=== PATIENT | female | born 1975 | race Caucasian/White ===

== ENCOUNTER → 2020-04-19 08:09 | Outpatient (CLI) | payer OTHER, SELFPAY ==
--- NOTE | ~2020-04-19 | MMUS_ITS ---
EXAMINATION: MM diagnostic june BI w melissa, US breast RT limited HISTORY: Right nipple discharge TECHNIQUE: Craniocaudal, mediolateral, and mediolateral oblique 3-D tomosynthesis images of the delfin ts were performed and synthetic 2-D images were generated. CAD analysis was submitted and interpreted . High resolution right breast ultrasound was performed. COMPARISON: 04/07/2019, 12/27/2016, 12/15/2016, 04/13/2015, 07/28/2014 BREAST PARENCHYMAL COMPOSITION: The breasts are heterogeneously dense, which may obscure small masses . FINDINGS: MAMMOGRAPHIC FINDINGS: Right breast: There is a 1.9 cm equal density mass in the subareolar aspect of the right breast which has a stable appearance when compared to prior mammograms. No suspicious mass, calcification, or arc hitectural distortion are identified. There has been no suspicious interval change. Left breast: There is no evidence of suspicious mass, calcification, or architectural distortion to suggest malignancy. There has been no suspicious interval change. ULTRASOUND: There is a stable 1.9 x 0.6 cm oval, circumscribed, parallel, hypoechoic mass with no posterior featu res or internal vascularity at the 12:00 location near the nipple. A 6 mm cyst is seen at the 12:00 l ocation 2 cm from the nipple. No suspicious cystic or solid mass is identified. IMPRESSION: 1. No specific mammographic or sonographic correlate is identified for the patient's reported right n ipple discharge. A subareolar right breast mass is stable since 2013 and considered benign given the lack of interval change. Further evaluation at this time should be based on clinical assessment. Cont inued follow-up physical examination is recommended. 2. Recommend routine screening mammography in one year. BI-RADS Category 2: Benign finding(s). Reviewed, dictated and finalized at location A. IMPRESSION: 1. No specific mammographic or sonographic correlate is identified for the steve ent's reported right nipple discharge. A subareolar right breast mass is stable since 2013 and considered benign given the lack of interval change. Further ev aluation at this time should be based on clinical assessment. Continued follow- up physical examination is recommended. 2. Recommend routine screening mammography in one year. BI-RADS Category 2: Benign finding(s).
== END ==
PROVIDERS: Visit Provider Family Medicine
DX: N64.52 Nipple discharge (principal)
CPT/HCPCS: 76642; 77062; 77066; G0279

== ENCOUNTER → 2021-03-05 07:18 | Outpatient (CLI) | payer OTHER, SELFPAY ==
--- NOTE | ~2021-03-05 | US_ITS ---
EXAMINATION: US transvaginal DATE: 03/05/2021 07:57 INDICATION: Abnormal uterine bleeding TECHNIQUE: Multiple endovaginal sonographic images of the pelvis were obtained. COMPARISON: 03/20/2019 FINDINGS: The uterus measures 10.5 x 4.6 x 6.6 cm. A 2.3 x 1.4 x 2.1 cm isoechoic area of the anterio r uterine body has the appearance of an intramural fibroid. The endometrial complex measures 7 mm. Th e right ovary measures 2.4 x 1.8 x 2.0 cm. The left ovary measures 1.6 x 1.0 x 1.3 cm. There is aydin l vascular flow in the ovaries. There is no free fluid in the pelvis. IMPRESSION: 1. No sonographic correlate for the patient's symptoms. Reviewed, dictated and finalized at location A.
== END ==
PROVIDERS: Visit Provider Family Medicine
DX: N93.9 Abnormal uterine and vaginal bleeding, unspecified (principal)
CPT/HCPCS: 76830

== ENCOUNTER → 2021-05-27 12:23 | Outpatient (CLI) | payer OTHER, SELFPAY ==
--- NOTE | ~2021-05-27 | MM_ITS ---
EXAMINATION: MM screening june BI w melissa HISTORY: Screening TECHNIQUE: Craniocaudal and mediolateral oblique 3-D tomosynthesis images were obtained and synthetic 2-D images were generated. CAD analysis was submitted and interpreted. COMPARISON: Comparison to multiple prior studies sequentially, with oldest reviewed study dated 07/15. BREAST PARENCHYMAL COMPOSITION: The breasts are heterogeneously dense, which may obscure small masses . FINDINGS: There is developing asymmetries in the upper inner quadrant of the right breast posteriorly . The left breast is stable without evidence for malignancy. IMPRESSION: 1. Developing right breast asymmetries 2. Additional mammographic views and possible breast ultrasound are recommended. BI-RADS Category 0: Incomplete: Needs additional imaging evaluation. Reviewed, dictated and finalized at location A. IMPRESSION: 1. Developing right breast asymmetries 2. Additional mammographic views and possible breast ultrasound are recommended . BI-RADS Category 0: Incomplete: Needs additional imaging evaluation.
== END ==
PROVIDERS: PCP Family Medicine; Visit Provider Family Medicine
DX: Z12.31 Encounter for screening mammogram for malignant neoplasm of breast (principal); R92.8 Other abnormal and inconclusive findings on diagnostic imaging of breast
CPT/HCPCS: 77063; 77067

== ENCOUNTER → 2021-06-29 09:21 | Outpatient (CLI) | payer OTHER, SELFPAY ==
--- NOTE | ~2021-06-29 | MMUS_ITS ---
EXAMINATION: MM diagnostic june RT w melissa, US breast RT complete HISTORY: Follow-up right breast masses TECHNIQUE: Additional 3-D tomosynthesis images of the right breast were performed and synthetic 2-D i mages were generated. CAD analysis was submitted and interpreted. High resolution complete right kalyan st ultrasound was performed. COMPARISON: Comparison to multiple prior studies sequentially, with oldest reviewed study dated 04/13. BREAST PARENCHYMAL COMPOSITION: The breasts are heterogenously dense, which may obscure small masses. FINDINGS: MAMMOGRAPHIC FINDINGS: There are multiple small masses scattered throughout the right breast which are partially obscured by fibroglandular tissue. The largest is in the subareolar location of the right breast. ULTRASOUND: Complete right breast ultrasound: There are multiple simple cysts of the right breast corresponding t o the masses seen on mammography. No suspicious solid masses are identified to suggest malignancy. IMPRESSION: 1. No evidence for malignancy in the right breast. Benign cysts. 2. Routine yearly screening mammogram and regular clinical breast examination are recommended. BI-RADS Category 2: Benign finding(s). Reviewed, dictated and finalized at location A. IMPRESSION: 1. No evidence for malignancy in the right breast. Benign cysts. 2. Routine yearly screening mammogram and regular clinical breast examination a re recommended. BI-RADS Category 2: Benign finding(s).
== END ==
PROVIDERS: PCP Family Medicine; Visit Provider Family Medicine
DX: R92.8 Other abnormal and inconclusive findings on diagnostic imaging of breast (principal)
CPT/HCPCS: 76641; 77061; 77065; G0279

== ENCOUNTER → 2022-10-25 10:24 | Outpatient (CLI) | payer OTHER, SELFPAY ==
--- NOTE | ~2022-10-25 | MM_ITS ---
EXAMINATION: MM screening june BI w melissa HISTORY: Screening mammogram TECHNIQUE: Craniocaudal and mediolateral oblique 3-D tomosynthesis images were obtained and synthetic 2-D images were generated. Bilateral rotated lateral CC views. CAD analysis was submitted and interp reted. COMPARISON: 06/29/2021 diagnostic right mammogram and complete right breast ultrasound examination 04/19/2020 diagnostic bilateral mammogram and limited right breast ultrasound 04/03/2019 bilateral screening mammogram BREAST PARENCHYMAL COMPOSITION: The breasts are heterogeneously dense, which may obscure small masses . FINDINGS: 1.4 cm circumscribed low-density subareolar opacity in the right breast, with halo sign, mo st consistent with benign process, likely a benign cyst. There is no evidence of suspicious mass, basia cification, or architectural distortion to suggest malignancy in either breast. There has been no julio picious interval change. IMPRESSION: 1. Benign finding. No mammographic evidence of malignancy. 2. Recommend routine screening mammography in one year. BI-RADS Category 2: Benign finding(s). Reviewed, dictated and finalized at location A. ASTER
== END ==
PROVIDERS: PCP Physician Assistant; Visit Provider Physician Assistant
DX: Z12.31 Encounter for screening mammogram for malignant neoplasm of breast (principal)
CPT/HCPCS: 77063; 77067

== ENCOUNTER → 2022-12-01 09:28 | Outpatient (CLI) | payer OTHER, SELFPAY ==
--- NOTE | ~2022-12-01 | XR_ITS ---
EXAMINATION: XR foot RT min 3V DATE: 12/01/2022 09:43 INDICATION: Right foot pain TECHNIQUE: Dorsoplantar, lateral, and 2 oblique views of the right foot were obtained. COMPARISON: None. FINDINGS: Bone alignment is normal. There is no fracture. The soft tissues are unremarkable. There is mild osteoarthritis of multiple interphalangeal joints. A plantar calcaneal enthesophyte is noted. IMPRESSION: 1. No acute osseous abnormality. Reviewed, dictated and finalized at location B. ER PICKER
== END ==
DX: M79.671 Pain in right foot (principal)
CPT/HCPCS: 73630

== ENCOUNTER → 2023-10-29 07:09 | Outpatient (CLI) | payer OTHER, SELFPAY ==
--- NOTE | ~2023-10-29 | MM_ITS ---
EXAMINATION: MM screening june BI w melissa HISTORY: Screening TECHNIQUE: Craniocaudal and mediolateral oblique 3-D tomosynthesis images were obtained and synthetic 2-D images were generated. CAD analysis was submitted and interpreted. COMPARISON: Comparison to multiple prior studies sequentially, with oldest reviewed study dated 04/07. BREAST PARENCHYMAL COMPOSITION: The breasts are heterogeneously dense, which may obscure small masses FINDINGS: There is a circumscribed radiolucent mass in the subareolar location of the right breast. T he left breast is stable without evidence for malignancy. IMPRESSION: 1. Subareolar mass in the right breast. 2. Additional mammographic views and possible breast ultrasound are recommended. BI-RADS Category 0: Incomplete: Needs additional imaging evaluation. Reviewed, dictated and finalized at location A. 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 Subareolar mass in the right breast. 2. Additional mammographic views and possible breast ultrasound are recommended . BI-RADS Category 0: Incomplete: Needs additional imaging evaluation.
== END ==
PROVIDERS: PCP Physician Assistant; Visit Provider Physician Assistant
DX: Z12.31 Encounter for screening mammogram for malignant neoplasm of breast (principal); R92.8 Other abnormal and inconclusive findings on diagnostic imaging of breast
CPT/HCPCS: 77063; 77067

== ENCOUNTER → 2023-12-03 08:12 | Outpatient (CLI) | payer OTHER, SELFPAY ==
--- NOTE | ~2023-12-03 | MMUS_ITS ---
EXAMINATION: MM diagnostic june RT w melissa, US breast RT limited HISTORY: Follow-up right breast mass TECHNIQUE: Additional 3-D tomosynthesis images of the right breast were performed and synthetic 2-D i mages were generated. CAD analysis was submitted and interpreted. High resolution Limited right breas t ultrasound was performed. COMPARISON: Comparison to multiple prior studies sequentially, with oldest reviewed study dated 04/07. BREAST PARENCHYMAL COMPOSITION: Dense: The breasts are heterogeneously dense, which may obscure small masses FINDINGS: MAMMOGRAPHIC FINDINGS: There is a persistent asymmetry in the subareolar location the right breast which is poorly circumscr ibed. There are no suspicious calcifications or focal architectural distortion. ULTRASOUND: Limited right breast ultrasound: Near the right nipple there is an oval circumscribed parallel orient ed hypoechoic mass with internal calcifications measuring 2 x 1.8 x 0.5 cm. There is minimal internal vascularity. At 11:00 near the areola there is a 3 mm cyst. IMPRESSION: 1. Oval hypoechoic to centimeter right breast mass in the periareolar location. 2. Ultrasound-guided right breast biopsy recommended. BI-RADS category 4, suspicious findings. Reviewed, dictated and finalized at location A. [employer] IMPRESSION: 1. Oval hypoechoic to centimeter right breast mass in the periareolar location. 2. Ultrasound-guided right breast biopsy recommended. BI-RADS category 4, suspicious findings.
== END ==
DX: R92.8 Other abnormal and inconclusive findings on diagnostic imaging of breast (principal)
CPT/HCPCS: 76642; 77061; 77065; G0279

== ENCOUNTER 2024-06-06 16:46 | Emergency (ER) | payer OTHER, SELFPAY ==
--- NOTE | ~2024-06-06 | XR_ITS ---
XR finger 1st RT min 2V Ordering provider: Dodie Easton PA-C History: . jammed in car winch, lac, r/o fx . Comparison: None. FINDINGS: BONES: No acute fracture or dislocation. JOINT SPACES: Normal. SOFT TISSUES: Normal. IMPRESSION: No acute osseous abnormality. Reviewed, dictated and finalized at location A.
[2024-06-06 16:47] VITALS: BP 139/82; PULSE 80; RESP 16; TEMP 36.6; O2SAT 100
--- NOTE | 2024-06-06 16:49 | ED.UPPEXIN ---
HPI - Extremity Injury (Upper) General Chief Complaint: Extremity Injury, Upper <Dodie Easton PA-C - Last Filed: 06/06/24 16:53> Stated Complaint: thumb caught in Jeep winch <MEGHNA Rothman Last Filed: 06/06/24 16:53> Time Seen by Provider: 06/06/24 16:51 <Dodie Easton PA-C - Last Filed: 06/06/24 16:53> Focused HPI: Patient is a 48 y/o female who presents to the ED with c/o a laceration to her R thumb. Patient reports she got her thumb jammed in her Jeep's car winch. Sustained laceration to medial edge of R thumb. Tetanus UTD. No other injuries. No numbness. GENERAL: Well-appearing, well-nourished, and in no acute distress. HEAD: Normocephalic, atraumatic. CHEST: Clear to auscultation. ?No respiratory distress. HEART: Regular rate and rhythm.? MSK: 2cm laceration to medial edge of R 1st digit over area of IP joint. Somewhat jagged edges but still approximates well. Minimal active bleeding. Distal sensation intact. NEURO: ?Alert and oriented x3. Patient screened in triage and initial orders placed.? ?Additional care and disposition to be based upon?diagnostic testing and treatment. <Dodie Easton PA-C - Last Filed: 06/06/24 16:53> Source: patient <Dodie Easton PA-C - Last Filed: 06/06/24 16:53> Mode of arrival: ambulatory <Dodie Easton PA-C - Last Filed: 06/06/24 16:53> Limitations: no limitations <MEGHNA Rothman Last Filed: 06/06/24 16:53> History of Present Illness HPI narrative: Agree with HPI <Felipe Montesinos MD - Last Filed: 06/06/24 20:26> Related Data Home Medications: Home Medications Medication Instructions Recorded Confirmed losartan 100 mg tablet mg 06/06/24 <MEGHNA Rothman Last Filed: 06/06/24 16:53> Allergies/Adverse Reactions: Allergies Allergy/AdvReac Type Severity Reaction Status Date / Time No Known Allergies Allergy Verified 06/06/24 19:45 <Dodie Easton PA-C - Last Filed: 06/06/24 16:53> Review of Systems Constitutional: Constitutional: Reports no additional constitutional complaints <Felipe Montesinos MD - Last Filed: 06/06/24 20:26> Musculoskeletal: Musculoskeletal: Reports no additional musculoskeletal complaints <Felipe Montesinos MD - Last Filed: 06/06/24 20:26> Integumentary/Breasts: Comments: right thumb laceration <Felipe Montesinos MD - Last Filed: 06/06/24 20:26> Neurologic: Reports system reviewed and no additional complaints, except as documented <Felipe Montesinos MD - Last Filed: 06/06/24 20:26> PMFSH Past Medical History Medical History: Medical History (Updated 06/06/24 @ 20:23 by Felipe Montesinos MD) Hypertension <Dodie Easton PA-C - Last Filed: 06/06/24 16:53> Exam Narrative: GENERAL: Well-appearing, well-nourished, and in no acute distress. HEAD: Normocephalic, atraumatic. HEART: Regular rate and rhythm. Normal peripheral pulses. EXTREMITIES: Normal range of motion. right thumb laceration over the proximal phalanx moving towards the distal interphalangeal joint. When viewed in a bloodless field there is no involvement bone or visualization tendon. Neurovascular intact. SKIN: Warm, dry, no rash. NEURO: Alert and oriented x3. PSYCH: Normal mood and affect. <Felipe Montesinos MD - Last Filed: 06/06/24 20:26> Course Course Emergency Course: Wound repaired. Does not require updated tetanus immunization. Appropriate for discharge home. <Felipe Montesinos MD - Last Filed: 06/06/24 20:26> Vital Signs Vital signs: Vital Signs Temperature 97.9 F 06/06/24 16:47 Pulse Rate 80 06/06/24 16:47 Respiratory Rate 16 06/06/24 16:47 Blood Pressure 139/82 06/06/24 16:47 Pulse Oximetry 100 06/06/24 16:47 Oxygen Delivery Room Air 06/06/24 16:47 Temperature 97.9 F 06/06/24 16:47 Pulse Rate 80 06/06/24 16:47 Respiratory Rate
--- NOTE | 2024-06-06 21:04 | PC.NURSE ---
lidocaine given by armando mackey.
[2024-06-06 21:06] VITALS: BP 126/76; PULSE 79; RESP 16; TEMP 36.6; O2SAT 98
== END 2024-06-06 21:07 | disposition home or self-care (01) ==
PROVIDERS: Emergency Provider Emergency Medicine
DX: S61.011A Laceration without foreign body of right thumb without damage to nail, initial encounter (principal); I10 Essential (primary) hypertension; W23.0XXA Caught, crushed, jammed, or pinched between moving objects, initial encounter
CPT/HCPCS: 12001; 73140; 99283

== ENCOUNTER 2024-07-07 07:51 | Outpatient (CLI) | payer OTHER, SELFPAY ==
--- NOTE | ~2024-07-07 | MMUS_ITS ---
EXAMINATION: MM diagnostic june RT w melissa, US breast RT limited HISTORY: 6 month follow-up status post benign biopsy TECHNIQUE: 3-D tomosynthesis images of the right breast were performed and synthetic 2-D images were generated. CAD analysis was submitted and interpreted. High resolution limited right breast ultrasoun d was performed. COMPARISON: 12/03/2023, 10/29/2023 BREAST PARENCHYMAL COMPOSITION:Dense: The breasts are heterogeneously dense, which may obscure small masses. FINDINGS: MAMMOGRAPHIC FINDINGS: Parenchymal pattern is stable from prior exam. Low-density right subareolar mass again present, now b iopsy clip in place. No other parenchymal abnormality seen. No suspicious calcifications. ULTRASOUND: 1.7 x 0.6 x 1.6 cm hypoechoic ovoid, wider than tall mass at the right subareolar region is essential ly stable from prior exam. Biopsy clip noted within the lesion. Much smaller, subcentimeter hypoechoi c lesions or cysts in the right perihilar region also present, also unchanged. IMPRESSION: No evidence for malignancy. Stable benign right breast lesions in the subareolar region. BI-RADS Category 2: Benign finding(s). Reviewed, dictated and finalized at location M. IMPRESSION: No evidence for malignancy. Stable benign right breast lesions in the subareol ar region. BI-RADS Category 2: Benign finding(s).
== END 2024-07-07 07:52 | disposition home or self-care (01) ==
PROVIDERS: PCP Physician Assistant; Visit Provider Surgery
DX: N63.41 Unspecified lump in right breast, subareolar (principal); R92.8 Other abnormal and inconclusive findings on diagnostic imaging of breast
CPT/HCPCS: 76642; 77061; 77065; G0279